=== PATIENT | male | born 1985 | race Hispanic/Latino ===

== ENCOUNTER → 2024-09-13 | Outpatient (CLI) | payer OTHER ==
[2024-09-13 14:39] LABS: BASOPHIL % 0.4 % (0.2-1.2); EOSINOPHIL # 1.3 10^3/uL (0.0-0.2); EOSINOPHIL % 12.4 % (0.0-5.0); HEMATOCRIT(ML) 37.4 % (37.0-53.0); HEMOGLOBIN 11.7 g/dL (13.9-16.3); LYMPHOCYTES # 1.88 10^3/uL1 (1.0-4.8); LYMPHOCYTES % 18.7 % (24.0-44.0); MEAN CORP HGB 20.8 pg (26-34); MEAN CORP HGB CONCENTRATION 31.3 g/dL (33-36.5); MEAN CORP VOLUME 66.5 fL (78-100); MONOCYTES # 0.6 10^3/uL (0.3-0.8); MONOCYTES % 5.9 % (5.0-12.0); NEUTROPHIL # 6.3 10^3/uL (1.8-7.7); NEUTROPHILS % 62.5 % (41.0-85.0); PLATELET COUNT 737 10^3/uL (150-400); RED BLOOD CELL 5.62 10^6/uL (4.50-5.90); RED CELL DISTRIBUTION WIDTH 16.7 % (11.5-14.5); WHITE BLOOD CELL 10.1 10^3/uL (4.5-11.0)
[2024-09-13 14:41] LABS: +ADD MANUAL DIFF(NO CHRG) NO
[2024-09-14 08:17] LABS: CMV AB, IgG (CYTOMEGALOVIRUS) <0.60 U/mL (0.00-0.59); CMV AB, IgM CYTOMEGALOVIRUS <30.0 AU/mL (0.0-29.9)
== END | disposition home or self-care (01) ==
LOC: LAB 13:58
PROVIDERS: ATTEND Student in an Organized Health Care Education/Training Program
DX: D50.9 Iron deficiency anemia, unspecified (principal); D69.6 Thrombocytopenia, unspecified; R53.82 Chronic fatigue, unspecified; R50.9 Fever, unspecified
CPT/HCPCS: 36415; 82728; 83550; 84153; 84402; 84403; 85025; 85060; 86038; 86225; 86235; 86256; 86644; 86645; 86664; 86665